=== PATIENT | male | born 1980 | race Caucasian/White ===

== ENCOUNTER 2025-06-14 16:38 | Emergency (ER) | payer SELFPAY ==
--- NOTE | ~2025-06-14 | XR_ITS ---
EXAMINATION: XR knee LT min 4V, XR tibia fibula LT 2V DATE: 06/14/2025 18:45 INDICATION: Left knee and leg infection post possible spider bite TECHNIQUE: 1. Anteroposterior, 2 oblique and crosstable lateral views of the affected knee were obtained 2. AP and lateral views of the left tibia and fibula were obtained on overlapping proximal and distal images. COMPARISON: None. FINDINGS: Alignment is normal. No fracture. Joint spaces are normal. No left knee or ankle joint effusion. Mild soft tissue swelling swelling about the knee and proximal calf most prominent anterior to the patella. IMPRESSION: 1. No osseous abnormality or knee/ankle joint effusions. Reviewed, dictated and finalized at location A. IMPRESSION: 1. No osseous abnormality or knee/ankle joint effusions.
[2025-06-14 17:04] VITALS: BP 120/64; PULSE 85; RESP 16; TEMP 36.6; O2SAT 97
--- OUTSIDE RECORDS SUMMARY | 2025-06-14 18:17 | XMS_ITS | Clinical Summary ---
Author Organization [facility] [place] [facility] Address [address] [place] [address] Care Team Providers Care Corporate Administrative Assistant Name Role Phone Mitchel Perdomo MD Primary Care Provider [phone] Allergies Active Allergy Reactions Criticality Noted Date Comments Penicillins Other (See comments) Low 05/27/2019 unknown Medications No known medications Active Problems Problem Noted Date Diagnosed Date Cellulitis of left leg 04/20/2025 Assessment & Plan (04/20/2025 3:21 AM CDT): Erythema, redness, swelling around the site where he was bit. Elevated WBCs and confirmed source; no tachycardia, no elevated lactate level. See images - Ceftriaxone plus vancomycin should provide full coverage; deescalate following susceptibilities. Leukocytosis 04/20/2025 Assessment & Plan (04/20/2025 3:03 AM CDT): WBCs 13.61; neutrophilic predominance suggests bacterial etiology. - Continue ceftriaxone and vancomycin Elevated blood pressure reading 04/20/2025 Assessment & Plan (04/20/2025 3:02 AM CDT): SBP is ranging between 120-155. Could possibly be due to pain or underlying hypertension. - Consider initiating antihypertensive medication on discharge Spider bite 04/20/2025 Assessment & Plan (04/20/2025 3:18 AM CDT): Patient presenting with spider bite followed by cellulitis raises concerns for abscess/infection. Preliminary wound culture has grown abundant Gram-positive cocci. We will keep vancomycin for now pending susceptibilities. Presentation could be due to him attempting to Broderick/manipulate his knee which would contaminate skin lorena as well. - Continue broad-spectrum antibiotics ceftriaxone and vancomycin with plan to deescalate following susceptibilities. - General surgery is consulted; appreciate recommendations regarding possible debridement Annual physical exam 02/07/2025 Assessment & Plan (02/07/2025 8:04 AM CDT): Discussed lifestyle modifications, diet and exercise. Routine blood work ordered/reviewed today. Yearly vision and dental examinations. Mixed hyperlipidemia 02/07/2025 Assessment & Plan (04/20/2025 3:01 AM CDT): Elevated LDL and TAGs per on chart review. Patient not taking any medications at home - Consider statin Laceration of third toe of left foot 08/14/2024 Fracture of fourth toe, left, open, initial enco unter 08/14/2024 Elbow sprain, left, initial encounter 07/04/2024 Encounters Date Type Department Care Team Description 04/19/2025 10:16 PM CDT - 04/20/2025 3:41 PM CDT Hospital Encounter [facility] IMU [address] [place] [address] Darinel Julian MD Huynh, MD Charles Mireles, Kate Lewis MD Cellulitis of left leg (Primary Dx); Insect bite of left lower leg, initial encounter; Spider bite wound, accidental or unintentional, initial encounter; Elevated blood pressure reading; Mixed hyperlipidemia Discharge Disposition: Left Against Medical Advice 04/19/2025 12:29 PM CDT - 04/19/2025 12:31 PM CDT Emergency [facility] Emergency Department [address] [place] [address] Discharge Disposition: Left without being seen 04/19/2025 9:15 AM CDT Office Visit [facility] at [address] [place] [phone] Ivette Irving NP Spider bite wound, accidental or unintentional, initial encounter (Primary Dx); Cellulitis of left knee 04/19/2025 - 04/19/2025 10:32 AM CDT Emergency [facility] Emergency Department [address] [place] [address] Discharge Disposition: ED Dismiss - Never Arrived from Last 3 Months Immunizations Immunization Administration Dates Next Due DTaP, Unspecified 12/24/1984,02/10/1984,11/14/18 84 Influenza, Unspecified 01/16/2025(Deferr ed: Patient Refused),07/19/2018(Deferred: Patient Refused) MMR 08/04/1991,12/24/1984 Polio, Unspecified 08/04/1991,12/24/1984, 984,11/14/1983 Td, Unspecified 08/04/1991 Tdap 10/03/2024,05/27/2019 Surgical History Surgery Date Site/Laterality Comments NO PAST SURGERIES Medical History Medical History Date Comments No pertinent past medical history Family History Medical History Relation Name Comments Hypertension Mother Thyroid disease Mother Prostate cancer Other Relation Name Status Comments Mother Alive Other Social History Tobacco Use Types Packs/Day Years Used Date Smoking Tobacco: Some Days Cigarettes Smokeless Tobacco: Former Quit: 2017 Tobacco Cessation:Ready to Q uit: Not Asked; Counseling Given: Not Answered Alcohol Use Standard Drinks/Week Comments Yes 0 (1 standard drink = 0.6 oz pur e alcohol) AUDIT-C Answer Date Recorded Q1: How often do you have a drink containing alc ohol? Monthly or less 04/20/2025 Q2: How many drinks containi ng alcohol do you have on a typical day when you are drinking? 3 or 4 04/20/2025 Q3: How often do you have si x or more drinks on one occasion? Never 04/20/2025 PHQ-2 Answer Date Recorded PHQ-2 Total Score (If total score is 3 or more points, staff should administer the PHQ-9) 0 02/07/2025 Personal Safety Answer Date Recorded Have you ever been in or are you currently in a harmful physical or emotional relationship or is someone making you feel afraid or unsafe? Denies 04/20/2025 Sex and Gender Information Value Date Recorded Sex Assigned at Not on file Legal Sex Male 8:46 AM CDT Gender Identity Not on file Sexual Orientation Not on file Obstetrics History Last Filed Vital Signs Vital Sign Reading Time Taken Comments Blood Pressure 127/88 04/20/2025 3:16 PM CDT Pulse 80 04/20/2025 3:16 PM CDT Temperature 36.2 C (97.2 F) 04/20/2025 3:16 PM CDT Respiratory Rate 20 04/20/2025 3:16 PM CDT Oxygen Saturation 96% 04/20/2025 3:16 PM CDT Inhaled Oxygen Concentration - - Weight 77.7 kg (171 lb 4.8 oz) 04/20/2025 1:44 A M CDT Height 185.4 cm (6' 1) 04/20/2025 1:44 AM CDT Body Mass Index 22.6 04/20/2025 1:44 AM CDT Plan of Treatment Health Maintenance Due Date Last Done Comments Hepatitis C Screening 1982 Hepatitis B Screening 2000 Pneumococcal vaccine <65 (1 of 2 - PCV) 2001 HPV Vaccines (1 - 3-dose SCD M series) 2009 Influenza Vaccine (#1) 2025 Depression Screening 02/07/2026 02/07/2025, 05/27/20 19 Regular Well Visit/Exam 18-64 02/07/2026 02/07/2025, 05/27/2019 DTaP/Tdap/Td Vaccine (7 - Td or Tdap) 10/03/2034 10/03/2024, 05/27/2019, 08/04/1991, Additional history exists Varicella Vaccines Discontinued Procedures Procedure Name Priority Date/Time Associated Diagnosis Comments COCAINE METABOLITE, URINE, CONFIRMATION Routine 04/20/2025 3:21 PM CDT DRUGS OF ABUSE SCREEN, URINE WITH REFLEX CONFIRMATION Routine 04/20/2025 3:21 PM CDT US LOWER EXTREMITY LEFT LIMITED IP Routine 04/20/2025 8:09 AM CDT EGFR Routine 04/20/2025 4:16 AM CDT DIFFERENTIAL AUTO Routine 04/20/2025 4:1 6 AM CDT COMPREHENSIVE METABOLIC PANEL Routine 04/20/2025 4:16 AM CDT CBC WITH AUTO DIFFERENTIAL Routine 04/20/2025 4:16 AM CDT LACTATE STAT 04/20/2025 12:25 AM CDT CRP (ACUTE PHASE) Routine 04/20/2025 12: 25 AM CDT ERYTHROCYTE SEDIMENTATION RATE Routine 04/20/2025 12:25 AM CDT BLOOD CULTURE Routine 04/20/2025 12:25 AM CDT BLOOD CULTURE Routine 04/20/2025 12:25 AM CDT EGFR STAT 04/19/2025 10:56 PM CDT DIFFERENTIAL AUTO STAT 04/19/2025 10: 56 PM CDT CBC WITH AUTO DIFFERENTIAL STAT 04/19/2025 10:56 PM CDT COMPREHENSIVE METABOLIC PANEL STAT 04/19/2025 10:56 PM CDT AEROBIC CULTURE AND GRAM STAIN Routine 04/19/2025 10:56 PM CDT from Last 3 Months Results * (ABNORMAL) Drugs of Abuse Screen, Urine with Reflex Confirmation (04/20/2025 3:21 PM CDT) [facility] Amphetamine, ur Not Detected CutOff 500ng/mL Comment: Interpretive Data - Amphetamines: Samples containing greater than 500 ng/mL d-methamphetamine or other cross-reacting amphetamine compounds are reported as positive. Amphetamine immunoassays are subject to significant false positive rates due to cross-reactivity of non-amphetamine drugs. Confirmatory testing required for definitive results. Current Interpretive Data was last reviewed 2023. Barbiturates, ur Not Detected CutOff 200ng/mL [facility] ([place]) Comment: Interpretive Data - Barbiturates: Samples containing greater than 200 ng/mL secobarbital or other cross-reacting barbiturate compounds are reported as positive. False positive and false negative results are possible. Confirmatory testing required for definitive results. Current Interpretive Data was last reviewed 2023. Benzodiazepines, ur Not Detected CutOff 100ng/mL [facility] ([place]) Comment: Interpretive Data - Benzodiazepines: Samples containing greater than 100 ng/mL nordiazepam or other cross-reacting compounds are reported as positive. False positive and false negative results are possible. Confirmatory testing required for definitive results. Current Interpretive Data was last reviewed 2023. Cannabinoids, ur Screen Positive, presumptive (A) CutOff 50 ng/mL [facility] ([place]) Comment: Interpretive Data - Cannabinoids: Samples containing greater than 50 ng/mL delta-9 THC -COOH or other cross- reacting compounds are reported as positive. False positive and false negative results are possible. Confirmatory testing required for definitive results. Current Interpretive Data was last reviewed 2023. Cocaine, ur Screen Positive, presumptive (A) CutOff 150ng/mL [facility] ([place]) Comment: Interpretive Data - Cocaine: Samples containing greater than 150 ng/mL benzoylecgonine or other cross- reacting compounds are reported as positive. False positive and false negative results are possible. Confirmatory testing required for definitive results. Current Interpretive Data was last reviewed 2023. Fentanyl, Ur Not Detected CutOff 5 ng/mL [facility] ([place]) Comment: Interpretive Data - Fentanyl: Samples containing greater than 5 ng/mL norfentanyl, fentanyl, or other cross-reacting fentanyl compounds are reported as positive. False positive and false negative results are possible. Confirmatory testing required for definitive results. Current Interpretive Data was last reviewed 2023. Methadone, ur Not Detected CutOff 300ng/mL [facility] ([place]) Comment: Interpretive Data - Methadone: Samples containing greater than 300 ng/mL d,l-methadone or other cross-reacting compounds are reported as positive. False positive and false negative results are possible. Confirmatory testing required for definitive results. Current Interpretive Data was last reviewed 2023. Opiates, ur Not Detected CutOff 300ng/mL [facility] ([place]) Comment: Interpretive Data - Opiates: Samples containing greater than 300 ng/mL morphine or other cross-reacting compounds are reported as positive. False positive and false negative results are possible. Confirmatory testing required for definitive results. Current Interpretive Data was last reviewed 2023. Oxycodone, ur Not Detected CutOff 100ng/mL [facility] ([place]) Comment: Interpretive Data - Oxycodone: Samples containing greater than 100 ng/mL oxycodone or other cross-reacting compounds are reported as positive. False positive and false negative results are possible. Confirmatory testing required for definitive results. Current Interpretive Data was last reviewed 2023. Phencyclidine, ur Not Detected CutOff 25 ng/mL [facility] ([place]) Comment: Interpretive Data - Phencyclidine: Samples containing greater than 25 ng/mL phencyclidine or other cross-reacting compounds are reported as positive. False positive and false negative results are possible. Confirmatory testing required for definitive results. Current Interpretive Data was last reviewed 2023. Urine Creatinine 109 mg/dL [facility] ([place]) Comment: Interpretive Data Urine Creatinine: < 10 mg/dL is extremely dilute = or > 10 but < 20 mg/dL is dilute = or > 20 mg/dL is normal Current Interpretive Data was last revised on 2018. Urine 04/20/2025 3:21 PM CDT 04/20/2025 3:25 PM CDT Narrative [facility] ([place]) - 04/20/2025 4:26 PM CDT Drug of Abuse screening is performed by immunoassay for medical purposes only. This is not to be used for Pain Management purposes. If Detected, confirmation testing will be performed for Amphetamines, Cocaine, Fentanyl, Methadone, Opiates, Oxycodone or Phencyclidine. Kate Soto MD LAB URINE ORDERABLES Simona clark Result [facility] OW[facility] ([place]) 1 [facility] Department of Laboratories [place], [place] [id number] * (ABNORMAL) Cocaine Confirmation, Urine (04/20/2025 3:21 PM CDT) Cocaine Metabolite (BEG) Conf, Ur Confirmed Positive(A) CutOff 100ng/mL Comment: Interpretive Data This test detects the presence or absence of drug compounds using LC Tandem mass spectrometry. While this test is highly specific, false positive and false negative results may occur in very rare circumstances. Contact the laboratory for consultation, if needed. Performance characteristics were determined by the [facility] in a manner consistent with CLIA requirement and has not been cleared or approved by the U.S. Food and Drug Administration. Current interpretive data was last revised on 2020. Testing performed by: [facility], [address] [facility] [place] [address] Urine 04/20/2025 3:21 PM CDT 04/20/2025 10:16 PM CDT us Kate Soto MD LAB URINE ORDERABLES Simona clark Result [facility] OW[facility] ([place]) 1 [facility] Department [place] [address] * US Lower Extremity Left Limited (04/20/2025 8:09 AM CDT) Anatomical Region Laterality Modality Lower Extremities Left Ultrasound 04/20/2025 10:5 5 AM CDT Narrative 04/20/2025 10:56 AM CDT EXAM DESCRIPTION: US LOWER EXTREMITY LEFT LIMITED REASON FOR STUDY: bite wound on left knee evaluation of fluid collection/abcess TECHNIQUE: A Dynamic assessment was performed of the medial left knee soft tissues by the pets and pet supplies salesperson, with selected grayscale and color Doppler images acquired and recorded in PACS. COMPARISON: None FINDINGS: There is extensive soft tissue swelling and edema involving the left knee soft tissues with increased color Doppler flow, which is concerning for a soft tissue infection such as cellulitis. There is no definite sonographic evidence of a focal fluid collection to suggest abscess. IMPRESSION: 1. Extensive soft tissue swelling and edema involving the left knee soft tissues with increased color Doppler flow, which is concerning for a soft tissue infection such as cellulitis. No definite sonographic evidence of a focal fluid collection to suggest abscess. THIS IS AN ELECTRONICALLY VERIFIED FINAL REPORT 04/20/2025 10:56 AM - Electronically signed by Hope Lopes D.O. PS: VIANEY Report ID: [id number] Reading Location: [id number] Procedure Note Hope Lopes DO - 04/20/2025 EXAM DESCRIPTION: US LOWER EXTREMITY LEFT LIMITED REASON FOR STUDY: bite wound on left knee evaluation of fluid collection/abcess TECHNIQUE: A Dynamic assessment was performed of the medial left kneesoft tissues by the pets and pet supplies salesperson, with selected grayscale and color Dopplerimages acquired and recorded in PACS. COMPARISON: None FINDINGS: There is extensive soft tissue swelling and edema involving the left kneesoft tissues with increased color Doppler flow, which is concerning for a soft tissue infection such as cellulitis. There is no definite sonographic evidence of a focal fluid collection to suggest abscess. IMPRESSION: 1. Extensive soft tissue swelling and edema involving the left knee soft tissues with increased color Doppler flow, which is concerning for a soft tissue infection such as cellulitis. No definite sonographic evidence of a focal fluid collection to suggest abscess. THIS IS AN ELECTRONICALLY VERIFIED FINAL REPORT 04/20/2025 10:56 AM - Electronically signed by Hope Lopes D.O. PS: PS Report ID: [id number] Reading Location: [place] [address] us Ajay Guido MD IMG US PROCEDURES Final Result * eGFR (04/20/2025 4:16 AM CDT) eGFR >90 >=60 mL/min/1. 73 m2 Comment: Interpretive Data Reference Interval Normal >/= 90 mL/min/1.73m2 Mildly decreased* 60 - 89 mL/min/1.73m2 Mildly to moderately decreased 45 - 59 mL/min/1.73m2 Moderately to severely decreased 30 - 44 mL/min/1.73m2 Severely decreased 15 - 29 mL/min/1.73m2 Kidney Failure < 15 mL/min/1.73m2 *Relative to young adult level Estimated glomerular filtration rate is determined by the 2020 CKD-EPI equation recommended by the National Kidney Foundation (A Unifying Approach to GFR Estimation: Recommendations of the NKF-ASK Task Force on Reassessing the Inclusion of Race in Diagnosing Kidney Disease, JASN 2020). The CKD-EPI equation should not be used for patients with unstable renal function and has not been validated in children and those over 70. Current interpretive data was last reviewed 2021. Blood 04/20/2025 4:16 AM CDT 04/20/2025 4:26 AM CDT Ajay Guido MD LAB BLOOD ORDERABLES Final Resu lt [facility] ([place]) 1 [facility] Department [place] [address] * (ABNORMAL) Differential, auto (04/20/2025 4:16 AM CDT) Neutrophil abs 6.75(H) 1.50 - 6.50 K/cumm Imm gran abs 0.05 0.00 - 0.10 K/cumm [facility] ([place]) Lymphocyte abs 4.54(H) 0.80 - 3.30 K/cumm [facility] ([place]) Monocyte abs 1.03(H) 0.20 - 0.80 K/cumm [facility] ([place]) Eosinophil abs 0.19 0.00 - 0.50 K/cumm [facility] ([place]) Basophil abs 0.06 0.00 - 0.10 K/cumm [facility] ([place]) Neutrophil pct 53.4 % [facility] ([place]) Comment: Interpretive Data Percent cell count reference ranges are not reported, since discordance with absolute values may lead to misinterpretation of CBC data. Current Interpretive Data was last revised on 2018. Imm gran pct 0.4 % [facility] ([place]) Comment: Interpretive Data Percent cell count reference ranges are not reported, since discordance with absolute values may lead to misinterpretation of CBC data. Current Interpretive Data was last revised on 2018. Lymphocyte pct 36.0 % [facility] ([place]) Comment: Interpretive Data Percent cell count reference ranges are not reported, since discordance with absolute values may lead to misinterpretation of CBC data. Current Interpretive Data was last revised on 2018. Monocyte pct 8.2 % [facility] ([place]) Comment: Interpretive Data Percent cell count reference ranges are not reported, since discordance with absolute values may lead to misinterpretation of CBC data. Current Interpretive Data was last revised on 2018. Eosinophil pct 1.5 % [facility] ([place]) Comment: Interpretive Data Percent cell count reference ranges are not reported, since discordance with absolute values may lead to misinterpretation of CBC data. Current Interpretive Data was last revised on 2018. Basophil pct 0.5 % [facility] ([place]) Comment: Interpretive Data Percent cell count reference ranges are not reported, since discordance with absolute values may lead to misinterpretation of CBC data. Current Interpretive Data was last revised on 2018. Blood 04/20/2025 4:16 AM CDT 04/20/2025 4:26 AM CDT us Ajay Guido MD LAB BLOOD ORDERABLES Final Resu lt [facility] ([place]) 1 [facility] Department [place] [address] * (ABNORMAL) CBC with auto differential (04/20/2025 4:16 AM CDT) WBC 12.62(H) 3.80 - 9.90 K/cumm Hgb 15.1 13.0 - 17.5 g/dL [facility] ([place]) Hct 45.0 38.9 - 50.3 % [facility]) Plt 332 150 - 400 K/cumm [facility] ([place]) MPV 9.8 9.1 - 12.3 fL [facility] ([place]) RBC 4.89 4.30 - 5.80 M/cumm [facility] ([place]) MCV 92.0 81.3 - 96.4 fL [facility] ([place]) MCH 30.9 27.1 - 33.3 pg [facility] ([place]) MCHC 33.6 32.3 - 35.7 g/dL [facility] ([place]) RDW CV 13.4 11.1 - 14.9 % [facility]) RDW SD 45.6 35.7 - 48.1 fL [facility] ([place]) NRBC abs 0.00 0.00 - 0.01 K/cumm [facility] ([place]) Blood 04/20/2025 4:16 AM CDT 04/20/2025 4:26 AM CDT us Ajay Guido MD LAB BLOOD ORDERABLES Final Resu lt [facility] ([place]) 1 [facility] Department [place] [address] * (ABNORMAL) Comprehensive metabolic panel (04/20/2025 4:16 AM CDT) Sodium 138 135 - 145 mmol/L Potassium, pl 4.0 3.3 - 4.9 mmol/L [facility]) Chloride 101 97 - 110 mmol/L [facility]) CO2 25 22 - 32 mmol/L [facility]) Anion gap 12 2 - 15 mmol/L [facility]) BUN 16 6 - 25 mg/dL [facility] ([place]) Creatinine 0.70(L) 0.80 - 1.30 mg/dL [facility] ([place]) Glucose 99 70 - 199 mg/dL [facility] ([place]) Comment: Interpretive Data Fasting glucose >/= 126 mg/dl is diagnostic for diabetes. Fasting is defined as no caloric intake for at least 8 hours. Fasting glucose between 100 mg/dl to 125 mg/dl is diagnostic of prediabetes. In a patient with classic symptoms of hyperglycemia or hyperglycemic crisis, a random glucose >/= 200 mg/dl is diagnostic for diabetes. In the absence of unequivocal hyperglycemia, results should be confirmed by repeat testing. The classification and Diagnosis of Diabetes Diabetes Care 202; 46: S19-S40. Current interpretive data was last revised 2022. Calcium 9.3 8.5 - 10.3 mg/dL [facility] ([place]) Bilirubin, total 0.3 0.1 - 1.2 mg/dL [facility] ([place]) Protein, pl 7.5 6.5 - 8.5 g/dL [facility] ([place]) Albumin 4.0 3.5 - 5.0 g/dL [facility] ([place]) Alk phos 92 40 - 130 Units/L [facility] ([place]) ALT 11 7 - 55 Units/L [facility]) AST 13 10 - 50 Units/L [facility] ([place]) Blood 04/20/2025 4:16 AM CDT 04/20/2025 4:26 AM CDT us Ajay Guido MD LAB BLOOD ORDERABLES Final Resu lt [facility] ([place]) 1 [facility] [employer] [place] [address] * (ABNORMAL) Lactate (04/20/2025 12:25 AM CDT) Lactate 0.6(L) 0.7 - 2.0 mmol/L Blood 04/20/2025 12:2 5 AM CDT 04/20/2025 12:31 AM CDT us Ajay Guido MD LAB BLOOD ORDERABLES Final Resu lt [facility] ([place]) 1 [facility] [employer] [place] [address] * Blood culture Blood (04/20/2025 12:25 AM CDT) Report Final Report: No growth Comment:Testing performed by : [facility], 1 [facility], [place]., [address] Blood 04/20/2025 12:2 5 AM CDT 04/20/2025 2:24 AM CDT Narrative [facility]ILLIANBRITANY OW[facility] ([place]) - 04/24/2025 7:01 AM CDT From a different site than #1. Collection->Peripheral 1. Blood cultures are incubated for 4 days on a continuously monitored blood culture system. The first report of a negative culture is issued within 24 hours of receipt of the specimen in the laboratory. 2. Positive culture results are reported as soon as they are detected. 3. The most important factor for detection of microbes in the setting of bloodstream infection is the volume of blood submitted for culture. Failure to collect an optimal blood volume can result in false negative blood cultures. 4. For pediatric patients, the recommended blood volume to collect follows a weight based strategy. See the electronic test catalog for collection instructions. 5. For positive blood cultures, a rapid molecular test may be performed for organism identification using the alfred ePlex blood culture identification panel for gram positive (BCID-GP) and gram negative (BCID-GN) organisms. This nucleic acid amplification test detects microbial DNA in positive blood culture broth. This assay has been cleared by the [place] Food and Drug Administration and its performance characteristics have been verified by the [facility]. For questions about this culture, contact the Microbiology Laboratory at [phone]. Interpretive data was last revised on 24. Ajay Guido MD LAB MICROBIOLOGY - GENERAL [facility] Final Result [facility] ([place]) 1 [facility] Department [place] [address] * Blood culture Blood (04/20/2025 12:25 AM CDT) Report Final Report: No growth Comment:Testing performed by : [facility], 1 [facility] [place]., [address] Blood 04/20/2025 12:2 5 AM CDT 04/20/2025 2:24 AM CDT Narrative [facility] OW[facility] ([place]) - 04/24/2025 7:01 AM CDT Collection->Peripheral 1. Blood cultures are incubated for 4 days on a continuously monitored blood culture system. The first report of a negative culture is issued within 24 hours of receipt of the specimen in the laboratory. 2. Positive culture results are reported as soon as they are detected. 3. The most important factor for detection of microbes in the setting of bloodstream infection is the volume of blood submitted for culture. Failure to collect an optimal blood volume can result in false negative blood cultures. 4. For pediatric patients, the recommended blood volume to collect follows a weight based strategy. See the electronic test catalog for collection instructions. 5. For positive blood cultures, a rapid molecular test may be performed for organism identification using the alfred ePlex blood culture identification panel for gram positive (BCID-GP) and gram negative (BCID-GN) organisms. This nucleic acid amplification test detects microbial DNA in positive blood culture broth. This assay has been cleared by the [place] Food and Drug Administration and its performance characteristics have been verified by the [facility]. For questions about this culture, contact the Microbiology Laboratory at [phone]. Interpretive data was last revised on 24. us Ajay Guido MD LAB MICROBIOLOGY - [facility] Final Result Performing Organization Address City/[facility]/ZIP Co de Phone Number ADRIANA OWEN ([place]) 1 [facility] [place] [place] [address] * (ABNORMAL) Erythrocyte sedimentation rate (04/20/2025 12:25 AM CDT) Erythrocyte sedimentation rate 16(H) 1 - 15 mm/hr Blood 04/20/2025 12:2 5 AM CDT 04/20/2025 12:31 AM CDT Ajay Guido MD LAB BLOOD ORDERABLES Final Resu lt ADRIANA OWEN ([place]) 1 [facility] [place] [place] [address] * (ABNORMAL) CRP (acute phase) (04/20/2025 12:25 AM CDT) CRP 17.2(H) <=10.0 mg/L Blood 04/20/2025 12:2 5 AM CDT 04/20/2025 12:31 AM CDT us Ajay Guido MD LAB BLOOD ORDERABLES Final Resu lt ADRIANA OWEN ([place]) 1 [facility] Department [place] [address] * eGFR (04/19/2025 10:56 PM CDT) Pathologist [facility] eGFR >90 >=60 mL/min/1. 73 m2 Comment: Interpretive Data Reference Interval Normal >/= 90 mL/min/1.73m2 Mildly decreased* 60 - 89 mL/min/1.73m2 Mildly to moderately decreased 45 - 59 mL/min/1.73m2 Moderately to severely decreased 30 - 44 mL/min/1.73m2 Severely decreased 15 - 29 mL/min/1.73m2 Kidney Failure < 15 mL/min/1.73m2 *Relative to young adult level Estimated glomerular filtration rate is determined by the 2020 CKD-EPI equation recommended by the National Kidney Foundation (A Unifying Approach to GFR Estimation: Recommendations of the NKF-ASK Task Force on Reassessing the Inclusion of Race in Diagnosing Kidney Disease, JASN 2020). The CKD-EPI equation should not be used for patients with unstable renal function and has not been validated in children and those over 70. Current interpretive data was last reviewed 2021. Blood 04/19/2025 10:5 6 PM CDT 04/19/2025 11:04 PM CDT us Dairnel Julian MD LAB BLOOD ORDERABLES Final R esult ADRIANA OWEN ([place]) 1 [facility] Department of [employer] [place] [address] * (ABNORMAL) Differential, auto (04/19/2025 10:56 PM CDT) Neutrophil abs 8.36(H) 1.50 - 6.50 K/cumm Imm gran abs 0.06 0.00 - 0.10 K/cumm [facility] ([place]) Lymphocyte abs 3.77(H) 0.80 - 3.30 K/cumm [facility] ([place]) Monocyte abs 1.22(H) 0.20 - 0.80 K/cumm [facility] ([place]) Eosinophil abs 0.15 0.00 - 0.50 K/cumm [facility] ([place]) Basophil abs 0.05 0.00 - 0.10 K/cumm [facility] ([place]) Neutrophil pct 61.4 % [facility] ([place]) Comment: Interpretive Data Percent cell count reference ranges are not reported, since discordance with absolute values may lead to misinterpretation of CBC data. Current Interpretive Data was last revised on 2018. Imm gran pct 0.4 % [facility] ([place]) Comment: Interpretive Data Percent cell count reference ranges are not reported, since discordance with absolute values may lead to misinterpretation of CBC data. Current Interpretive Data was last revised on 2018. Lymphocyte pct 27.7 % [facility] ([place]) Comment: Interpretive Data Percent cell count reference ranges are not reported, since discordance with absolute values may lead to misinterpretation of CBC data. Current Interpretive Data was last revised on 2018. Monocyte pct 9.0 % [facility] ([place]) Comment: Interpretive Data Percent cell count reference ranges are not reported, since discordance with absolute values may lead to misinterpretation of CBC data. Current Interpretive Data was last revised on 2018. Eosinophil pct 1.1 % [facility] ([place]) Comment: Interpretive Data Percent cell count reference ranges are not reported, since discordance with absolute values may lead to misinterpretation of CBC data. Current Interpretive Data was last revised on 2018. Basophil pct 0.4 % [facility] ([place]) Comment: Interpretive Data Percent cell count reference ranges are not reported, since discordance with absolute values may lead to misinterpretation of CBC data. Current Interpretive Data was last revised on 2018. Blood 04/19/2025 10:5 6 PM CDT 04/19/2025 11:04 PM CDT us Darinel Julian MD LAB BLOOD ORDERABLES Final R esult ADRIANA [facility] ([place]) 1 [facility] Department [place] [address] * (ABNORMAL) Aerobic culture and gram stain Lesion Leg, left (04/19/2025 10:56 PM CDT) Direct Specimen Exam Stain: Rare polymorphonuclear leukocytes seen. Abundant Gram Positive Cocci Comment:Testing performed by : [facility], [address] [place] [address]., [id number] Report Final Report: Moderate Staphylococcus aureus Methicillin resistant (MRSA) by penicillin binding protein 2a (PBP2a) testing. (.) ADRIANA OWEN ([place]) Comment:Testing performed by : [facility], [address] [place]., [address] Organism STAPHYLOCOCCUS AUREUS ADRIANA OWEN ([place]) Lesion (Leg, left) 04/19/2025 10:56 PM CDT 04/20/2025 2:22 AM CDT Narrative ADRIANA OWEN ([place]) - 04/23/2025 2:30 PM CDT Testing performed by [facility] ([phone]) Specimens submitted from normally sterile body sites will have all bacterial morphotypes identified. Specimens that contain grossly mixed lorena and/or are from body sites that are not normally sterile will be examined for Staphylococcus aureus, Pseudomonas aeruginosa, beta-hemolytic strep, vancomycin-resistant Enterococcus and fungus. If any of these are isolated, the organism will be reported. Current interpretive data was last revised on 2017. Organism Antibiotic Method Susceptibility Staphylococcus aureus Vancomycin INTERPRETATION Susceptible Staphylococcus aureus Ceftaroline INTERPRETATION Susceptible Staphylococcus aureus Trimethoprim with Sulfamethoxazole INTERPRETATION Susceptible Staphylococcus aureus Linezolid INTERPRETATION Susceptible Staphylococcus aureus Doxycycline INTERPRETATION Susceptible Staphylococcus aureus Clindamycin INTERPRETATION Resistant Staphylococcus aureus Erythromycin INTERPRETATION Resistant Staphylococcus aureus Oxacillin INTERPRETATION Resistant Staphylococcus aureus Cefazolin INTERPRETATION Resistant Staphylococcus aureus Ceftriaxone INTERPRETATION Resistant us Darinel Julian MD LAB MICROBIOLOGY - GENERAL O RDERABLES Final Result ADRIANA OWEN ([place]) 1 [facility] Department [place] [address] * (ABNORMAL) CBC with auto differential (04/19/2025 10:56 PM CDT) WBC 13.61(H) 3.80 - 9.90 K/cumm Hgb 14.3 13.0 - 17.5 g/dL [facility] ([place]) Hct 42.3 38.9 - 50.3 % [facility] ([place]) Plt 330 150 - 400 K/cumm [facility] ([place]) MPV 10.0 9.1 - 12.3 fL [facility] ([place]) RBC 4.65 4.30 - 5.80 M/cumm [facility] ([place]) MCV 91.0 81.3 - 96.4 fL [facility] ([place]) MCH 30.8 27.1 - 33.3 pg [facility] ([place]) MCHC 33.8 32.3 - 35.7 g/dL [facility] ([place]) RDW CV 13.3 11.1 - 14.9 % [facility] ([place]) RDW SD 44.7 35.7 - 48.1 fL [facility] ([place]) NRBC abs 0.00 0.00 - 0.01 K/cumm [facility] ([place]) Blood 04/19/2025 10:5 6 PM CDT 04/19/2025 11:04 PM CDT Darinel Julian MD LAB BLOOD ORDERABLES Final R esult [facility] ([place]) 1 [facility] Department [place] [address] * Comprehensive metabolic panel (04/19/2025 10:56 PM CDT) Pathologist [facility] Sodium 139 135 - 145 mmol/L Potassium, pl 3.7 3.3 - 4.9 mmol/L [facility] ([place]) Chloride 102 97 - 110 mmol/L [facility] ([place]) CO2 24 22 - 32 mmol/L [facility] ([place]) Anion gap 12 2 - 15 mmol/L [facility] ([place]) BUN 17 6 - 25 mg/dL [facility] Creatinine 0.91 0.80 - 1.30 mg/dL [facility] ([place]) Glucose 132 70 - 199 mg/dL [facility] ([place]) Comment: Interpretive Data Fasting glucose >/= 126 mg/dl is diagnostic for diabetes. Fasting is defined as no caloric intake for at least 8 hours. Fasting glucose between 100 mg/dl to 125 mg/dl is diagnostic of prediabetes. In a patient with classic symptoms of hyperglycemia or hyperglycemic crisis, a random glucose >/= 200 mg/dl is diagnostic for diabetes. In the absence of unequivocal hyperglycemia, results should be confirmed by repeat testing. The classification and Diagnosis of Diabetes Diabetes Care 202; 46: S19-S40. Current interpretive data was last revised 2022. Calcium 9.4 8.5 - 10.3 mg/dL [facility] ([place]) Bilirubin, total 0.5 0.1 - 1.2 mg/dL [facility] ([place]) Protein, pl 7.3 6.5 - 8.5 g/dL [facility] ([place]) Albumin 4.1 3.5 - 5.0 g/dL [facility] ([place]) Alk phos 91 40 - 130 Units/L [facility] ([place]) ALT 11 7 - 55 Units/L [facility] ([place]) AST 16 10 - 50 Units/L [facility] ([place]) Comment:Slightly Hemolyzed S pecimen Blood 04/19/2025 10:5 6 PM CDT 04/19/2025 11:04 PM CDT Darinel Julian MD LAB BLOOD ORDERABLES Final R esult [facility] ([place] 1 [facility] Department [place] [address] from Last 3 Months Insurance [facility] Advance Directives For more information, please contact: [phone] * Full Code (Latest Code Status on File) Date Activated Date Inactivated Comments 04/20/2025 12:06 AM 04/20/2025 7:46 PM Care Teams Corporate Administrative Assistant Relationship Specialty Start Date End Date Mitchel Perdomo MD [address] [place] [address] DR VIDAL [address] [place] [id number] PCP - General Family Medicine 12/12/24
--- NOTE | 2025-06-14 18:18 | ED_ITS ---
HPI - Skin/Abscess/Foreign Bdy General Chief complaint: Skin/Abscess/Foreign Body Stated complaint: abscess left knee Time Seen by Provider: 06/14/25 17:56 History of Present Illness HPI narrative: Patient is a 44-year-old male who presents to the ER with complaints of L knee and left lower extremity pain. He reports he was bit by a brown recluse spider 6 1/2 weeks ago and was admitted to [place] for IV antibiotics. Patient reports he left against medical advice after a few days of treatment. He reports a week ago he started experiencing pain and swelling to the front of his left knee. Patient's sister had a prescription for clindamycin at her house so he started taking that antibiotic intermittently. He reports the knee abscess has been draining but he now has a new red and tender spot below his left knee. Patient denies any recent fevers, calf pain, or illicit drug use. He denies any other medical history pertinent to this ER visit. Related Data Allergies Allergy/AdvReac Type Severity Reaction Status Date / Time Penicillins Allergy Mild Rash Verified 06/14/25 18:46 Review of Systems 2 Review of Systems: All systems reviewed & are unremarkable except as noted in HPI and below Exam 2 Narrative: GENERAL: Well appearing, well-nourished, non-toxic, in no acute distress. HEAD: Normocephalic, atraumatic. NECK: Supple. No adenopathy, no masses. RESPIRATORY: Airway patent, respirations nonlabored. Clear to auscultation bilaterally, no rales, rhonchi, wheezing. CARDIOVASCULAR: Regular rate and rhythm without murmurs, rubs, or gallops. Peripheral pulses 2+ and equal bilaterally. ABDOMINAL: Soft, nontender, nondistended, no hepatosplenomegaly. Normoactive BS. MUSCULOSKELETAL: Moves all extremities. Strength/ROM intact without gross deformities. SKIN: Warm, dry, normal color. No rashes. L knee anterior draining abscess with surrounding redness, L anterior distal knee wound, redness surrounding a pencil eraser-sized dark red scab. NEURO: A&O X3. Speech clear. Cranial nerves II-XII intact. No ataxic movements. PSYCHIATRIC: Appropriate mood and affect. Normal interaction. Course Vital Signs Vital signs: Vital Signs Temperature 36.6 C 06/14/25 17:04 Pulse Rate 85 06/14/25 17:04 Respiratory Rate 16 06/14/25 17:04 Blood Pressure 120/64 06/14/25 17:04 Pulse Oximetry 97 06/14/25 17:04 Temperature 36.7 C 06/14/25 20:01 Pulse Rate 80 06/14/25 20:01 Respiratory Rate 18 06/14/25 20:01 Blood Pressure 151/85 H 06/14/25 20:01 Pulse Oximetry 97 06/14/25 20:01 MDM - Skin/Abscess/Foreign Bdy MDM Narrative Medical decision making narrative: Patient is a 44-year-old male who presents to the ER with complaints of L knee and left lower extremity pain. He reports he was bit by a brown recluse spider 6 1/2 weeks ago and was admitted to [place] for IV antibiotics. Patient reports he left against medical advice after a few days of treatment. He reports a week ago he started experiencing pain and swelling to the front of his left knee. Patient's sister had a prescription for clindamycin at her house so he started taking that antibiotic intermittently. He reports the knee abscess has been draining but he now has a new red and tender spot below his left knee. Patient denies any recent fevers, calf pain, or illicit drug use. He denies any other medical history pertinent to this ER visit. Patient is not a diabetic. Labs Ordered: CBC, CMP, lactic acid, UA, UDS, INR, PTT, CRP Imaging Ordered: Left knee x-ray, Left tib/fib x-ray Medications Ordered: 2.3 L normal saline IV bolus, Ancef IV, morphine 4 mg Results: Patient's CBC indicates white blood cell count 13.3. His coag results were all within normal limits. Patient's chemistry results were all within normal limits. His C-reactive protein is 2.8. Patient's urinalysis does not indicate a urinary tract infection. His UDS is positive for cocaine and cannabinoids. Patient's knee x-ray indicates 1. No osseous abnormality or knee/ankle joint effusions. Diagnosis: Left knee abscess and cellulitis Patient Education/Shared MDM: Results of lab work and imaging shared with patient. He endorses improvement of symptoms following medication administration. Patient strongly advised to stop using illicit drugs. He should follow-up with his PCP as soon as possible. Pt was given Ancef IV here in the ER. He will be discharged home with a prescription for Bactrim. Strict return precautions provided. Patient verbalized understanding and is in agreement with plan. Vital signs stable at time of discharge. All questions answered. Differential Diagnosis Differential diagnosis: Likely abscess of skin or subcutaneous tissue, urticaria, cellulitis and contact dermatitis Lab Data Attestation: I reviewed the patient's lab results. 06/14/25 18:29 06/14/25 18:29 Labs: Lab Results 06/14/25 06/14/25 Range/Units 18:29 18:37 WBC 13.3 H (4.5-10.0) K/mm3 RBC 4.72 (4.6-6.20) M/mm3 Hgb 14.3 (14.0-18.0) g/dL Hct 43.8 (42.0-52.0) % MCV 92.8 (80-100) fl MCH 30.3 (26-34) pg MCHC 32.6 (32-36) g/dl RDW 13.5 (11.5-14.5) % Plt Count 348 (150-375) k/mm3 MPV 10.0 (7.4-10.4) fl Immature Gran % (Auto) 0.5 (0-0.5) % Neut % (Auto) 65.8 (45.5-73.1) % Lymph % (Auto) 24.1 (18.3-44.2) % [place] % (Auto) 7.8 (2.6-8.5) % Eos % (Auto) 1.4 (0-4.4) % Baso % (Auto) 0.4 (0.2-1.2) % Lymph # (Auto) 3.21 H (0.9-3.2) K/mm3 [place] # (Auto) 1.0 H (0.1-0.6) K/mm3 Eos # (Auto) 0.2 (0-0.3) K/mm3 Baso # (Auto) 0.1 (0.0-0.1) K/mm3 Abs Immat Gran (auto) 0.06 H (0.00-0.031) K/mm3 Absolute Neuts (auto) 8.8 H (1.3-6.7) K/mm3 Absolute Nucleated RBC 0.000 (0.0-0.012) K/mm3 Nucleated RBC % 0.0 (0.0-0.2) % PT 14.1 (11.1-14.7) Seconds INR 1.1 APTT 28.9 (22.3-36.8) Seconds Sodium 139 (137-145) mmol/L Potassium 4.2 (3.4-5.0) mmol/L Chloride 104 (98-107) mmol/L Carbon Dioxide 27 (22-30) mmol/L Anion Gap 8 (4-12) mmol/L BUN 16 (9-20) mg/dL Creatinine 0.70 (0.7-1.3) mg/dL Estim Creat Clear Calc 130 ml/min Estimated GFR > 60 (59 - ) Glucose 107 (65-110) mg/dL Lactic Acid 1.5 (0.7-2.0) mmol/L Calcium 9.3 (8.4-10.2) mg/dL Total Bilirubin 0.5 (0.2-1.3) mg/dL AST 24 (17-59) U/L ALT 17 (6-50) U/L Alkaline Phosphatase 72 (38-126) U/L C-Reactive Protein 2.8 H (<1.0) mg/dL Total Protein 8.1 (6.3-8.2) g/dL Albumin 4.3 (3.5-5.1) g/dL Urine Color Yellow (Yellow) Urine Appearance Cloudy H (Clear) Urine pH 6.5 (5.0-9.0) Ur Specific [place] 1.021 (1.001-1.035) Urine Protein Negative (Negative) mg/dL Urine Glucose (UA) Negative (Negative) mg/dL Urine Ketones Negative (Negative) mg/dL Ur Blood (Man) Negative (Negative) Urine Nitrate Negative (Negative) Urine Bilirubin Negative (Negative) Urine Urobilinogen 0.2 (<2.0) mg/dL Leukocyte Esterase Rfl Negative (Negative) AIDEN/UL Urine RBC 0-2 (0-2) /hpf Urine WBC 0-5 (0-3) /hpf Ur Squamous Epith Cells None seen (Few) /hpf Urine Bacteria None seen /hpf Urine Casts 0-2 Urine Opiates Screen Negative (Negative) Urine Methadone Screen Negative (Negative) Ur Barbiturates Screen Negative (Negative) Ur Phencyclidine Scrn Negative (Negative) Ur Amphetamine Screen Negative (Negative) U Benzodiazepines Scrn Negative (Negative) Urine Cocaine Screen Positive A (Negative) U Cannabinoids Screen Positive A (Negative) Imaging Data Attestation: I personally reviewed and interpreted this imaging study as follows: Radiologist's impression: Impressions Knee X-Ray 06/14/25 19:03 IMPRESSION: 1. No osseous abnormality or knee/ankle joint effusions. Tibia/Fibula X-Ray 06/14/25 19:03 IMPRESSION: 1. No osseous abnormality or knee/ankle joint effusions. Discharge Plan Discharge Clinical Impression: Abscess of skin or subcutaneous tissue, Cellulitis, Illicit drug use Patient Disposition: Home Condition: Stable Instructions: Antibiotic Form, Abscess (ED) Additional Instructions: Please return to the ER with any worsening symptoms. Follow-up with primary care provider as soon as possible to ensure healing. Take all medications as prescribed, including regularly scheduled medications. Complete your full dose of antibiotics. Please stop using illicit drugs. Patient Language: Yi Prescriptions: New sulfamethoxazole-trimethoprim [Bactrim DS] 800-160 mg tablet 1 tablet PO Q12H 5 Days Qty: 10 0RF Follow-up/Referrals: PHYSICIAN,WHEEL LOADER OPERATOR [Primary Care Provider, Internal Medicine] Suze Silva DO [Physician, Family Practice] Referral Note: primary care provider Time of Disposition: 21:19
[2025-06-14 18:39] LABS: Hematocrit 43.8 % (42.0-52.0); Hemoglobin 14.3 g/dL (14.0-18.0); Immature Granulocyte Percent A 0.5 % (0-0.5); Lymphocytes Absolute Auto 3.21 K/mm3 (0.9-3.2); Mean Corpuscular HGB Conc 32.6 g/dl (32-36); Mean Corpuscular Hemoglobin 30.3 pg (26-34); Mean Corpuscular Volume 92.8 fl (80-100); Nucleated Red Blood Cells Absolute Auto 0.000 K/mm3 (0.0-0.012); Nucleated Red Blood Cells Perc 0.0 % (0.0-0.2); Platelet Count Result 348 k/mm3 (150-375); Red Blood Count 4.72 M/mm3 (4.6-6.20); White Blood Count 13.3 K/mm3 (4.5-10.0)
[2025-06-14] MEDS: SODIUM CHLORIDE 0.9% IV 1,000 ML 999 ML IV CONT ×2 (18:46)
[2025-06-14] MEDS: MORPHINE SULFATE (*CRX) 4 MG/ML INJ IV PUSH (18:47)
[2025-06-14] MEDS: ceFAZolin 1 GM in SODIUM CHLORIDE 0.9% IV 50 ML 100 ML IVPB (18:47)
[2025-06-14 18:50] LABS: Add Urine Microscopic? YES; Appearance Urine Cloudy (Clear); Glucose Urine UA Negative (Negative); Leukocyte Esterase Ur Negative LEU/UL (Negative); Nitrate Urine Negative (Negative); Non Pathogenic Casts 0-2; Specific Grav Ur 1.021 (1.001-1.035)
[2025-06-14 18:51] LABS: Alanine Aminotransferase 17 U/L (6-50); Albumin Level 4.3 g/dL (3.5-5.1); Alkaline Phosphatase 72 U/L (38-126); Anion Gap 8 mmol/L (4-12); Aspartate Amino Transferase 24 U/L (17-59); Bilirubin,Total 0.5 mg/dL (0.2-1.3); Blood Urea Nitrogen 16 mg/dL (9-20); CRP 2.8 mg/dL (<1.0); Calcium 9.3 mg/dL (8.4-10.2); Carbon Dioxide 27 mmol/L (22-30); Chloride 104 mmol/L (98-107); Estimated CRCL calculation 130 ml/min; Estimated Glomerular Filt Rate > 60; Glucose 107 mg/dL (65-110); INR 1.1; Potassium 4.2 mmol/L (3.4-5.0); Prothrombin Time 14.1 Seconds (11.1-14.7); Sodium 139 mmol/L (137-145); Total Protein 8.1 g/dL (6.3-8.2)
[2025-06-14 18:52] LABS: Partial Thromboplastin Time 28.9 Seconds (22.3-36.8)
[2025-06-14 19:06] LABS: Cannabinoid Screen Urine Positive (Negative)
[2025-06-14 20:01] VITALS: BP 151/85; PULSE 80; RESP 18; TEMP 36.7; O2SAT 97
--- NOTE | 2025-06-14 20:02 | PC.NURSE ---
Received report from BARB Ortiz for cont. of care. Pt AOx4 lying on stretcher, respirations even and unlabored. VS WNL
[2025-06-14] MEDS: SODIUM CHLORIDE 0.9% IV 400 ML 999 ML IV CONT (20:10)
[2025-06-14 21:28] VITALS: BP 146/81; PULSE 93; RESP 16; O2SAT 99
== END 2025-06-14 21:40 | disposition home or self-care (01) ==
PROVIDERS: Emergency Provider Registered Nurse
DX: L03.116 Cellulitis of left lower limb (principal); F14.90 Cocaine use, unspecified, uncomplicated; F12.90 Cannabis use, unspecified, uncomplicated
CPT/HCPCS: 36415; 73564; 73590; 80053; 80307; 81001; 83605; 85025; 85610; 85730; 86140; 96365; 96375; 99284; J0690; J2270; J7030